=== PATIENT | female | born 1985 | race Caucasian/White ===

== ENCOUNTER 2021-08-22 08:27 | Emergency (ER) | payer OTHER ==
[~2021-08-22] VITALS: Ht 157.5 cm; Wt 77.2 kg
[2021-08-22] MEDS ORDERED: OMNI-PAC300 MG PO (09:57)
[2021-08-22 10:03] VITALS: BP 92/43
== END 2021-08-22 10:25 | disposition home or self-care (01) | DRG 605 ==
LOC: ED 08:27
PROC: 0HQGXZZ Repair Left Hand Skin, External Approach (ICD-10-PCS; principal; 2021-08-22)
DX: S61.213A Laceration without foreign body of left middle finger without damage to nail, initial encounter (principal); S62.633A Displaced fracture of distal phalanx of left middle finger, initial encounter for closed fracture; W20.8XXA Other cause of strike by thrown, projected or falling object, initial encounter; Y93.B3 Activity, free weights; Y92.39 Other specified sports and athletic area as the place of occurrence of the external cause